=== PATIENT | female | born 1995 | race African-American/Black ===

== ENCOUNTER 2021-05-21 21:50 | Emergency (ER) | payer SELFPAY ==
[~2021-05-21] VITALS: Ht 162.6 cm; Wt 98.0 kg
[2021-05-21] MEDS ORDERED: HYDROCODONE/ACETAMINOPHEN 5/325MG TABLET PO ONE (22:15)
[2021-05-21] MEDS ORDERED: MORPHINE SULFATE 10 MG/ML CPJ IM ONE (23:15)
[2021-05-21] MEDS ORDERED: KETAMINE HCL 50 MG/ML 10ML IV ONE (23:45)
[2021-05-21] MEDS ORDERED: PROPOFOL 200MG/20ML VIAL IV ONE (23:45)
[2021-05-22] MEDS ORDERED: IBUP-2029 MT (02:08)
[2021-05-22] MEDS ORDERED: HYDR-4001 MT (02:08)
[2021-05-22] MEDS ORDERED: HYDROCODONE/ACETAMINOPHEN 5/325MG TABLET PO ONE (03:30)
[2021-05-22 03:49] VITALS: BP 124/63
== END 2021-05-22 04:27 | disposition home or self-care (01) ==
LOC: ER 21:50
DX: S82.52XA Displaced fracture of medial malleolus of left tibia, initial encounter for closed fracture (principal); W01.0XXA Fall on same level from slipping, tripping and stumbling without subsequent striking against object, initial encounter; Y93.89 Activity, other specified; Y92.018 Other place in single-family (private) house as the place of occurrence of the external cause
CPT/HCPCS: 73610; 96372; 96374; 96375; 99152; 99285; J2270; J2704; J3490; Z7610